=== PATIENT | female | born 1970 | race Caucasian/White ===

== ENCOUNTER 2022-02-11 15:37 | Emergency (ER) | payer OTHER ==
[~2022-02-11 15:37] MED LIST: NORCO 5-325 TA1 EACH PO; VENTOLIN HFA IN18 GM PO; ZOFRAN4 MG PO
[2022-02-11] MEDS ORDERED: CYCLOBENZAPRINE10 MG PO (18:56)
[2022-02-11] MEDS ORDERED: MEDROL 4MG DOSEP4 MG PO (18:56)
== END 2022-02-11 19:00 | disposition home or self-care (01) ==
LOC: FER 15:37
DX: S43.402A Unspecified sprain of left shoulder joint, initial encounter (principal); Z28.310 Unvaccinated for COVID-19; Z88.0 Allergy status to penicillin; Z91.041 Radiographic dye allergy status; W07.XXXA Fall from chair, initial encounter
CPT/HCPCS: 72125; 73030; 73080